=== PATIENT | female | born 1995 | race Hispanic/Latino ===

== ENCOUNTER → 2018-03-24 | Outpatient (CLI) | payer MEDICAID ==
[~2018-03-24] MED LIST: PREN1TAB59 PO
== END | disposition home or self-care (01) ==
LOC: OPOB 11:20
PROVIDERS: ATTEND Obstetrics & Gynecology
DX: O99.413 Diseases of the circulatory system complicating pregnancy, third trimester (principal); R03.0 Elevated blood-pressure reading, without diagnosis of hypertension; Z3A.39 39 weeks gestation of pregnancy
CPT/HCPCS: 59025

== ENCOUNTER → 2018-03-31 | Outpatient (CLI) | payer MEDICAID | END | disposition home or self-care (01) | LOC: OPOB 12:13 | PROVIDERS: ATTEND Obstetrics & Gynecology | DX: O99.413 Diseases of the circulatory system complicating pregnancy, third trimester (principal); R03.0 Elevated blood-pressure reading, without diagnosis of hypertension; Z3A.39 39 weeks gestation of pregnancy | CPT/HCPCS: 59025 ==

== ENCOUNTER 2018-04-03 00:30 | Observation (INO) | payer MEDICAID ==
[~2018-04-03] VITALS: Ht 160 cm; Wt 114.3 kg
[2018-04-03 00:57] LABS: BILIRUBIN,URINE NEGATIVE (NEGATIVE); UROBILINOGEN,URINE NORMAL (NEGATIVE)
[2018-04-03 01:05] LABS: APPEARANCE,URINE CLEAR (CLEAR); UA COLOR YELLOW (YELLOW)
[2018-04-03 03:01] VITALS: BP 121/61
== END 2018-04-03 03:30 | disposition home or self-care (01) ==
LOC: ATP 00:30
PROVIDERS: ADMIT Obstetrics & Gynecology; ATTEND Obstetrics & Gynecology
DX: O62.9 Abnormality of forces of labor, unspecified (principal); O48.0 Post-term pregnancy; Z3A.40 40 weeks gestation of pregnancy
CPT/HCPCS: 59025; 80307; 81000; 87086; G0378 ×3

== ENCOUNTER 2018-04-07 08:00 | Inpatient (IN) | payer MEDICAID ==
[~2018-04-07] VITALS: Ht 160 cm; Wt 115.2 kg
--- NOTE | 2018-04-08 09:19 | PCM.HP ---
OB EXAM Physical Exam Vital Signs: Pulse Oximetry: 94, Weight: 252 Vital Signs Date Time Temp Pulse Resp B/P (MAP) Pulse Ox O2 Delivery O2 Flow Rate FiO2 04/03/18 03:01 94 Allergies Coded Allergies Type Severity Reaction Last Updated Verified cefaclor Allergy Unknown Hives 09/02/17 Yes HEENT: NCAT Lungs: Clear Abdomen: Gravid Extremities: Normal Reflexes: Normal Cervical Dilatation: 2cm Effacement: 25% Station: -3 Membranes: Intact Heart Rate: 130's Accelerations: Accelerations Present Decelerations: Early Decelerations Short Term Variability: Present Mcc Variability: Average (6-25) Contractions on Admission: None Intensity: Mild Presentation: vertex, EFW 8 lbs OB Assessment and Plan Assessment/Plan Reason for admission: induction of labor Induction Method: per Pitocin Protocol OB - Chief Complaint & HPI Date of Admission: Date of Admission: Apr 08, 2018 at 09:00 Chief Complaint/History : 1 Para: 0 EDC: Mar 31, 2018 EGA: 40w1d Reason for admission: induction of labor Indication for induction: post dates Admission Nurse Assessment Rev: Yes OB - History Hx of Present Care: Good Care Ultrasounds: Normal mid trimester US Obstetrical Complications: None, Gestational Hypertension (borderline blood pressures, that resolved while lying down) Medical Complications: None Past Family/Social History * Past Medical, Surgical, Family and Obstetric Histories reviewed from chart. Blood Type: A+ Rubella: not immune RPR/VDRL: Negative GBS Status: Negative HBsAG: Negative YASMEEN ACEVEDO MD Apr 08, 2018 09:19
[2018-04-08] MEDS ORDERED: PHENERGAN IV PRN (09:30)
[2018-04-08] MEDS ORDERED: BICITRA PO ONE (09:30)
[2018-04-08] MEDS ORDERED: D5LR 1000ML 1,000 ML IV SCH (09:30)
[2018-04-08] MEDS ORDERED: ZOFRAN IV PRN (09:30)
[2018-04-08] MEDS ORDERED: LIDOCAINE 1% VIAL SQ PRN (09:30)
[2018-04-08] MEDS ORDERED: DEMEROL IV PRN (09:30)
[2018-04-08 09:50] LABS: MEAN CELL HGB 24.9 pg (26-34); MEAN CELL HGB CONCENTRATION 31.8 g/dL (33-37); MEAN CORP VOLUME 78.5 fL (78-100); MEAN PLATELET VOLUME 10.5 fL (7.8-11.0); RED CELL DISTRIBUTION WIDTH 15.7 % (11.5-14.5); WHITE BLOOD CELL 9.1 10^3/uL (4.5-11.0)
[2018-04-08] MEDS ORDERED: WATER ONE (10:14)
[2018-04-08] MEDS ORDERED: LIDOCAINE 1% VIAL ONE (10:15)
[2018-04-08] MEDS ORDERED: LACTATED RINGERS 2,000 ML ONE (10:16)
[2018-04-08] MEDS ORDERED: LR/PITOCIN 1,000 ML IV ONE (10:16)
[2018-04-08] MEDS: LACTATED RINGERS 1,000 ML IV SCH ×2 (10:39→17:57)
[2018-04-08] MEDS: LR/PITOCIN 500 ML IV SCH (11:00)
--- NOTE | 2018-04-08 11:13 | PRM.PN ---
Assessment/Plan Assessment/Plan Patientdeliveredvaginally-seedleiverynote. Physical Exam HEENT: Fontanelles Normal, Nasal Mucosa Normal, Eyes non-injected, Oropharynx Normal, PERRLA, Moist Membranes Lungs: Clear, Equal Abdomen: Gravid, Non tender, Soft Extremities: Normal Reflexes: Normal Cervical Dilatation: 2cm (2.5 cm) Effacement: 25% Station: -3 Membranes: Intact Heart Rate: 120's Accelerations: No Accelerations Decelerations: No Decelerations Short Term Variability: Present Vulcanizer Variability: Average (6-25) Contractions on Admission: 6-10 Minutes Apart Duration: Category [address] and inflated with 40mL uterine/ 30mL vag Presentation: vertex, OB - Admission Exam Physical Exam Vitals: 04/09/18 0920 BP: 134/67, HR 100 HEENT: Fontanelles Normal, Nasal Mucosa Normal, Eyes non-injected, Oropharynx Normal, PERRLA, Moist Membranes Lungs: Clear, Equal Abdomen: Gravid, Non tender, Soft Extremities: Normal Reflexes: Normal Cervical Dilatation: 6cm Effacement: 75% Station: -2 Heart Rate: 140's Accelerations: Accelerations Present Decelerations: No Decelerations Short Term Variability: Present [facility] Variability: Average (6-25) Contractions on Admission: 6-10 Minutes Apart Presentation: vertex-patient getting epidural then we will stop pitocin and allow to eat OB - Admission Exam Physical Exam Vitals: Time of exam 04/09/182014 BP: 134/66 HR 81 HEENT: Fontanelles Normal, Nasal Mucosa Normal, Eyes non-injected, Oropharynx Normal, PERRLA, Moist Membranes Lungs: Clear, Equal Cervical Dilatation: 8cm Effacement: 75% Station: -2 Membranes: Ruptured Amniotic Fluid: Clear Heart Rate: 140's Accelerations: No Accelerations Decelerations: Early Decelerations Short Term Variability: Present [facility] Variability: Average (6-25) Frequency of Contractions: Contractionsnow2-3minutes apart,, 160 MVUs Presentation: vertex, plan is for next check at 2300, if no change will section. YASMEEN ACEVEDO MD Apr 08, 2018 11:13
--- NOTE | 2018-04-08 19:18 | PRM.PN ---
Assessment/Plan Assessment/Plan SVE /-3, intact. Pitocin @ 6. CTX Q 2-3 min. ZAMZAM KENNEDY DO Apr 08, 2018 19:18
[2018-04-09] MEDS ORDERED: WATER ONE (02:16)
[2018-04-09] MEDS ORDERED: SENSORCAINE-MPF 0.25% VIAL ONE (08:58)
[2018-04-09] MEDS ORDERED: NAROPIN 0.2% 100 ML BAG 100 ML ONE (08:58)
[2018-04-09] MEDS ORDERED: LACTATED RINGERS 1,000 ML ONE ×2 (14:31→22:10)
[2018-04-09] MEDS: LACTATED RINGERS 1,000 ML IV SCH ×2 (14:40→22:20)
[2018-04-09] MEDS: D5LR 1000ML 1,000 ML IV SCH (20:52)
[2018-04-10] MEDS: LR/PITOCIN 500 ML IV SCH (00:58)
--- NOTE | 2018-04-10 01:24 | PCM.OBDEL1 ---
OB Delivery 7-18 Delivery Summary DATE: Apr 10, 2018 TIME: 01:20 Delivery: Spont. Vaginal Delivery, Spon/Man Extract Placent EBL/ESTIMATED BLOOD LOSS: (MIL: 400 Repair: 2 Degree Summary of Delivery: Patient was fully dilated and felt urge to push. She pushed and delivered a viable female from the NICK position with no difficulty. Cord was clamped and cut, and was handed to mother. Cord blood was collected. Placenta with three vessel cord was delivered intact. Mother was examined for lacerations and found to have a second degree perineal laceration, repaired with 2-0 vicryl in a runninglocked fashion Fundus was firm. and mother left in room. Infant Information Date of : Apr 10, 2018 Time of Infant : 00:46 (Placenta 0049) Scoring Interval: One (1) Minute (7) Sex of Infant: Male Assessment/Plan Assessment & Plan Planis for routine care YASMEEN ACEVEDO MD Apr 10, 2018 01:24
[2018-04-10] MEDS ORDERED: DERMOPLAST SPRAY TP PRN (01:30)
[2018-04-10] MEDS ORDERED: MYLANTA PO PRN (01:30)
[2018-04-10] MEDS ORDERED: NORCO 5MG PO PRN ×2 (01:30)
[2018-04-10] MEDS ORDERED: TUCKS TP PRN (01:30)
[2018-04-10] MEDS ORDERED: LR/PITOCIN 500 ML IV SCH ×2 (01:30)
[2018-04-10] MEDS ORDERED: LANOLIN HYDROUS TP PRN (01:30)
[2018-04-10] MEDS ORDERED: TYLENOL PO PRN (01:30)
[2018-04-10] MEDS ORDERED: MOTRIN PO PRN (01:30)
[2018-04-10] MEDS ORDERED: DERMOPLAST SPRAY TP ONE (03:40)
[2018-04-10] MEDS ORDERED: TUCKS ONE (03:40)
[2018-04-10] MEDS ORDERED: COLACE PO SCH (21:00)
[2018-04-11 05:22] LABS: BASOPHIL % 0.2 % (0.0-0.2); EOSINOPHIL # 0.3 10^3/uL (0.0-0.2); HEMOGLOBIN 9.4 g/dL (12.0-15.0); LYMPHOCYTES # 2.8 10^3/uL (1.0-4.8); LYMPHOCYTES % 25.3 % (24.0-44.0); MEAN CELL HGB CONCENTRATION 31.2 g/dL (33-37); MEAN CORP VOLUME 80.1 fL (78-100); MEAN PLATELET VOLUME 10.5 fL (7.8-11.0); MONOCYTES # 0.8 10^3/uL (0.3-0.8); MONOCYTES % 6.8 % (5.0-12.0); NEUTROPHIL # 7.1 10^3/uL (1.8-7.7); NEUTROPHILS % 64.4 % (41.0-85.0); RED CELL DISTRIBUTION WIDTH 16.2 % (11.5-14.5); WHITE BLOOD CELL 11.1 10^3/uL (4.5-11.0)
--- NOTE | 2018-04-11 10:18 | PRM.PN ---
Subjective Progress Notes Post Op/Hospital Day: Hospital day #: (22yo PPD1 s/p . ) Subjective: No new complaints, Feels better, Tolerating regular diet Objective Vital Signs and I&O Vital Signs Date Time Temp Pulse Resp B/P (MAP) Pulse Ox O2 Delivery O2 Flow Rate FiO2 04/03/18 03:01 94 BP 124/59 HR 75 RR 18 SO2 97 T 97.7 General: No acute distress Respiratory Auscultation: Normal Breath Sounds Cardiovascular auscultation: Normal S1 S2, RRR Skin: Normal Neurological: Normal mental status Meds/Labs/Orders Medication List: Current Medications Medications (Trade) Dose Ordered Sig/Karen PRN Reason Start Time Stop Time Status Last Admin Acetaminophen (Tylenol) 650 mg Q4HR PRN PAIN MILD 04/10/18 01:30 05/10/18 01:29 Acetaminophen/ Hydrocodone Bitart ([facility] 5mg) 1 ea Q4HR PRN PAIN MODERATE 04/10/18 01:30 05/10/18 01:29 Acetaminophen/ Hydrocodone Bitart ([facility] 5mg) 2 ea Q4HR PRN PAIN SEVERE 04/10/18 01:30 05/10/18 01:29 Benzocaine (Dermoplast [place]) To perineum PRN sut... PRN PRN Perineal Pain 04/10/18 01:30 05/10/18 01:29 04/10/18 04:25 Docusate Sodium (Colace) 100 mg HS 04/10/18 21:00 05/10/18 20:59 Ibuprofen (Motrin) 800 mg Q6HR PRN CRAMPING/PAIN 04/10/18 01:30 05/10/18 01:29 Lanolin (Lanolin Hydrous) Apply to nipples PRN dry, pain... TID PRN pain/cracking 04/10/18 01:30 05/10/18 01:29 Witch Priti (Tucks) To perineal area ... PRN PRN Hemorrhoids 04/10/18 01:30 05/10/18 01:29 04/10/18 04:24 Lab results: Laboratory Tests Test 04/11/18 04:36 White Blood Count 11.1 10^3/uL Red Blood Count 3.76 10^6/uL Hemoglobin 9.4 g/dL Hematocrit 30.1 % Mean Corpuscular Volume 80.1 fL Mean Corpuscular Hemoglobin 25.0 pg Mean Corpuscular Hemoglobin Concent 31.2 g/dL Red Cell Distribution Width 16.2 % Platelet Count 286 10^3/uL Mean Platelet Volume 10.5 fL Neutrophils (%) (Auto) 64.4 % Lymphocytes (%) (Auto) 25.3 % Monocytes (%) (Auto) 6.8 % Neutrophils # (Auto) 7.1 10^3/uL Lymphocytes # (Auto) 2.8 10^3/uL Monocytes # (Auto) 0.8 10^3/uL Absolute Immature Granulocyte (auto 0.03 10^3 u/L Eosinophils % 3.0 % Basophils % 0.2 % Basophils # 0.0 10^3/uL Eosinophil Count 0.3 10^3/uL Percent Immature Gran (Cell Imm) 0.30 % My orders: Orders - YASMEEN ACEVEDO MD Routine Vital Signs (04/10/18 01:19) Activity Advance As Tolerated (04/10/18 01:19) Ice Pk To Episiotomy/Tear (04/10/18 01:19) Sitz Bath Prn (04/10/18 01:19) Docusate Sodium (Colace) (04/10/18 21:00) Lanolin,Anhydrous (Lanolin Hydrous) (04/10/18 01:30) Ibuprofen (Motrin) (04/10/18 01:30) Acetaminophen (Tylenol) (04/10/18 01:30) Hydrocodone/Acetaminophen ([facility] 5mg) (04/10/18 01:30) Hydrocodone/Acetaminophen ([facility] [place] 5mg) (04/10/18 01:30) Mag Hydrox/Aluminum Hyd/Simeth (Mylanta) (04/10/18 01:30) Benzocaine/Lanolin/Aloe Vera (Dermoplast (04/10/18 01:30) Witch Priti (Tucks) (04/10/18 01:30) Regular Diet (04/10/18 Breakfast) Plan Assessment Problems: (1) Vaginal delivery Status: Resolved ICD Code: O80 - Encounter for full-term uncomplicated delivery SNOMED: 738150597 Assessment 22yo PPD 1 s/p , doing well. Plan is for discharge home. YASMEEN ACEVEDO MD Apr 11, 2018 10:18
[2018-04-11] MEDS ORDERED: DOCU-123 PO (10:20)
[2018-04-11] MEDS ORDERED: IBUP-598 PO (10:20)
--- NOTE | 2018-04-11 10:22 | PRM.DC ---
OB Discharge Summary Discharge Summary Date of Arrival on Unit: Apr 08, 2018 Reason for Visit: Induction of labor Discharge Date: Apr 11, 2018 Patient History: Asthma G8 BROTHER (4) Discharge Diagnosis: Status Post Discharge Disposition: YASMEEN Palencia MD Apr 11, 2018 10:22
[2018-04-11 10:57] VITALS: BP 124/59
[2018-04-11] MEDS ORDERED: M-M-R II VACCINE WITH DILUENT SQ ONE (14:03)
== END 2018-04-11 17:35 | disposition home or self-care (01) | DRG 560 ==
LOC: LND 04-08 09:00 → EDPENDDISTM 04-11 10:30
PROVIDERS: ADMIT Obstetrics & Gynecology; ATTEND Obstetrics & Gynecology
PROC: 10E0XZZ Delivery of Products of Conception, External Approach (ICD-10-PCS; principal; 2018-04-10)
PROC: 0KQM0ZZ Repair Perineum Muscle, Open Approach (ICD-10-PCS; 2018-04-10)
PROC: 3E033VJ Introduction of Other Hormone into Peripheral Vein, Percutaneous Approach (ICD-10-PCS; 2018-04-10)
PROC: 3E0R3BZ Introduction of Anesthetic Agent into Spinal Canal, Percutaneous Approach (ICD-10-PCS; 2018-04-10)
PROC: 00HU33Z Insertion of Infusion Device into Spinal Canal, Percutaneous Approach (ICD-10-PCS; 2018-04-10)
DX: O48.0 Post-term pregnancy (principal); Z68.42 Body mass index [BMI] 45.0-49.9, adult; O63.9 Long labor, unspecified; O75.2 Pyrexia during labor, not elsewhere classified; E66.01 Morbid (severe) obesity due to excess calories; O99.214 Obesity complicating childbirth; O69.81X0 Labor and delivery complicated by cord around neck, without compression, not applicable or unspecified; O70.1 Second degree perineal laceration during delivery; Z37.0 Single live birth; Z3A.40 40 weeks gestation of pregnancy; Z88.1 Allergy status to other antibiotic agents; Z82.5 Family history of asthma and other chronic lower respiratory diseases
CPT/HCPCS: 36415; 59025; 59610; 82948; 85025; 85027; 86900; J2001; J2590; J3490; J7120; 90707